=== PATIENT | female | born 1965 | race Caucasian/White ===

== ENCOUNTER 2023-06-26 14:54 | Outpatient (CLI) | payer OTHER, SELFPAY ==
--- NOTE | 2023-06-26 15:03 | USCV_ITS ---
Nenita Dennis Age: 58 Gender: F : 1965 Exam Date: 06/26/2023 15:39 Ordering Phys: Cathy Mijares MD Technologist: James Barragan [place] [facility] [place]: murmur BP: 138 / 70 HR: 75 Rhythm: Sinus Technical Quality: Adequate MEASUREMENTS (Male / Female) Normal Values 2D ECHO LVOT Diameter 2.0 cm LV Ejection Fraction MOD 2C 63.4 % LV Ejection Fraction 2C AL 65.7 % LA Diameter 3.9 cm LA Width 3.2 cm LA Height 4.2 cm RA Width 2.9 cm RA Height 4.7 cm Aorta at Sinotubular Diameter 2.9 cm IVC Diameter 1.5 cm M-MODE Aortic Annulus Diameter 2.7 cm LA Ao Ratio MM 1.4 MV E Point Septal Separation 0.4 cm DOPPLER AV Peak Velocity 155.0 cm/s LVOT Peak Velocity 94.7 cm/s AV Area Cont Eq vti 2.3 cm squared AV Area Cont Eq pk 2.0 cm squared MV Peak Velocity 102.0 cm/s MV Area PHT 3.0 cm squared Mitral E to A Ratio 0.8 MV E' Velocity 42.0 cm/s Mitral E to MV E' Ratio 12.8 Mitral E to LV E' Lateral Ratio 12.0 Mitral E to LV E' Septal Ratio 13.7 TR Peak Velocity 178.3 cm/s TR Peak Gradient 12.7 mmHg TR Mean Velocity 137.8 cm/s TR Mean Gradient 8.2 mmHg TR Velocity Time Integral 34.6 cm Right Atrial Pressure 3.0 mmHg Pulmonary Artery Systolic Pressu 15.7 mmHg PV Peak Velocity 101.0 cm/s RV Acceleration Time 0.1 s RV Ejection Time 0.3 s RV AcT/ET 0.5 FINDINGS Left Ventricle Normal left ventricular size, systolic function and wall thickness, with no regional wall motion abnormalities. Normal left ventricular wall thickness. Normal diastolic filling pattern. Right Ventricle The right ventricle is normal in size and function. Right Atrium The right atrium is normal in size. Left Atrium The left atrium is normal in size. Mitral Valve Structurally normal mitral valve without significant stenosis or prolapse. There is no mitral regurgitation. Aortic Valve Structurally normal aortic valve without significant sclerosis or stenosis. There is no aortic regurgitation. Tricuspid Valve Structurally normal tricuspid valve without significant stenosis. There is trivial regurgitation. Pulmonary artery systolic pressure is normal. Pulmonic Valve Structurally normal pulmonic valve without significant stenosis. There is trivial pulmonic regurgitation. Pericardium Normal pericardium without effusion. Aorta Normal ascending aorta dimension. IVC The inferior vena cava appears normal. CONCLUSIONS Overall normal LV function with no significant valvular disease Hussain Roberts MD (Electronically Signed) Final Date: 27 June 2023 10:37 S
== END 2023-06-26 14:55 | disposition home or self-care (01) ==
LOC: RAD 14:58
PROVIDERS: Visit Provider Nurse Practitioner Family
DX: R01.1 Cardiac murmur, unspecified (principal)
CPT/HCPCS: 93306

== ENCOUNTER → 2024-08-26 08:40 | Outpatient (BNVA) | payer OTHER, SELFPAY | PROVIDERS: PCP Nurse Practitioner Family; Visit Provider Physician Assistant | DX: M79.641 Pain in right hand (principal); M79.642 Pain in left hand; M65.4 Radial styloid tenosynovitis [de Quervain]; R03.0 Elevated blood-pressure reading, without diagnosis of hypertension; M18.0 Bilateral primary osteoarthritis of first carpometacarpal joints | CPT/HCPCS: 73130 ==

== ENCOUNTER → 2025-04-04 08:01 | Outpatient (BNVA) | payer OTHER, SELFPAY | PROVIDERS: PCP Nurse Practitioner Family; Visit Provider Physician Assistant | DX: M18.0 Bilateral primary osteoarthritis of first carpometacarpal joints (principal); M65.4 Radial styloid tenosynovitis [de Quervain]; G56.02 Carpal tunnel syndrome, left upper limb | CPT/HCPCS: 73130 ==

== ENCOUNTER 2025-05-19 09:12 | Day surgery (SDC) | payer OTHER, SELFPAY ==
[2025-05-19] VITALS (9 sets, daily range): BP systolic 91–184; BP diastolic 62–101; PULSE 64–78; RESP 12–18; TEMP 36.2–36.4; O2SAT 93–100; BMI 34.3
--- NOTE | 2025-05-19 10:05 | W.PM.OPSFHP ---
Same Day Surgery H&P Indication for Procedure/HPI DATE OF PROCEDURE: May 19, 2025 CHIEF COMPLAINT/INDICATIONFOR SURGICAL PROCEDURE: Right wrist de Quervain's disease, left carpal tunnel syndrome PREOP DIAGNOSIS: Right wrist de Quervain's disease, left carpal tunnel syndrome PLANNED PROCEDURE: Operation Date: 05/19/25 11:10 Proposed Procedures p LEFT Carpal Tunnel Release(Left) - Silvestre Heard, DO s RIGHT Wrist De Quervain's Release(Right) - Silvestre Zhou, DO Medications/Allergies* Home Medications ?Medication ?Instructions ?Recorded ?Confirmed ?Type atorvastatin 10 mg tablet 10 mg PO DAILY 08/26/24 05/19/25 History blood-glucose sensor (Dexcom G6 #1 ea 08/26/24 05/19/25 History Sensor device) blood-glucose transmitter (Dexcom #1 ea 08/26/24 05/19/25 History G6 Transmitter device) ergocalciferol (vitamin D2) 1,250 1,250 mcg PO DAILY 08/26/24 05/19/25 History mcg (50,000 unit) capsule gabapentin 300 mg capsule 300 mg PO DAILY 08/26/24 05/19/25 History lisinopril 20 mg tablet 20 mg PO DAILY 08/26/24 05/19/25 History metformin 500 mg tablet,extended 500 mg PO DAILY 08/26/24 05/19/25 History release 24 hr semaglutide 1 mg/dose (4 mg/3 mL) 1 mg SUBCUT DIRECTED 08/26/24 05/19/25 History subcutaneous pen injector (Ozempic) venlafaxine 37.5 mg 37.5 mg PO DAILY 08/26/24 05/19/25 History capsule,extended release 24 hr Allergies/Adverse Reactions Allergy/AdvReac Type Severity Reaction Status Date / Time Penicillins Allergy Unknown Unknown Verified 05/18/25 08:47 Pertinent History/Comorbid Conditions* Family History (Updated 08/26/24 @ 08:54 by Gladis Stewart MA) Diabetes Mother Family/Other Uncle on mother's side Social History Smoking and tobacco/nicotine status: never used tobacco/nicotine Pertinent Exam Findings alert, oriented x 3, operative site marked and procedure specific exam findings Orthopedic examination today demonstrates patient has positive Tinel's over the left carpal tunnel with thenar eminence pain. Patient does have some subtle appreciable thenar atrophy appreciated on the left hand. On the right hand patient has a positive Tinel's and Torrey's over the first dorsal compartment as well as tenderness palpation over the first dorsal compartment consistent with right wrist de Quervain's disease Please refer to detailed orthopedic examination on 04/04/2025 listed below: Right Hand exam-Negative Tinel's and Negative Phalen's test. Negative CMC grind test. Tenderness over CMC joint area. Tenderness at base of thumb and wrist. positive Torrey's test. No Thenar atrophy and no thenar muscle weakness. Full range of motion in fingers and wrist and fingers are warm and well-perfused with normal cap refill under 2 seconds. Radial pulse 2+. Left Hand exam-positive Tinel's and positive Phalen's test. No thenar atrophy and no thenar muscle weakness. Full range of motion in fingers and wrist and fingers are warm and well-perfused with normal cap refill under 2 seconds. Radial pulse 2+, no intrinsic muscle weakness noted. Elbow exam-negative Tinel's test Recommendations Risks and benefits of procedure reviewed and Patient/family agree to proceed Surgery/Procedure today Other Plans: Plan to proceed to the OR today for left carpal tunnel release and right wrist de Quervain's release. At this point in time patient is having significant pain over her right wrist radial styloid first dorsal compartment findings are consistent with a right wrist de Quervain's disease she is only had temporary relief with injection and this at this point I am ready proceed with surgical invention she also has significant numbness and tingling as well as pain on her left thumb more over the thenar eminence. She does have some subtle appreciable atrophy on examination as well. At this point in time she states she feels like she has some of the pain over her first dorsal compartment as well and was wondering about having a de Quervain's done on the left side unfortunately I discussed this with her that this was not initially authorized with her surgery due to her last office visit and now this pain has has worsened since that time I offered her the option of just doing the right side today and then reevaluating in clinic for the left side but at this point in time she would like to have the left carpal tunnel release addressed as well as the right wrist de Quervain's release. She does understand and on my description on her examination she does have some pain over the thenar eminence and numbness and tingling that could possibly be related to the carpal tunnel which at this point in time we talked about this in detail and through shared decision making she would like to see how her hand responds to the left carpal tunnel release first and in the follow-up we will address her de Quervain's potentially on the left side if this ends up being more the cause it issue of her pain but she does still have the issues with numbness which she would like to have addressed. At this point in time we are both in agreements and understand the planned procedure for today which she is in agreements and wants to proceed with which is the left carpal tunnel release of the right wrist de Quervain's release she understands the ins outs procedure the risk benefits complication alternatives surgical nonsurgical treatment options. Understanding risk of surgery she elects proceed with surgical invention. All questions answered at this time. Coding Level of Care Code Acute Code for Apolonia Milton
[2025-05-19] MEDS: acetaminophen 1,000 MG/100 ML PIGGYBACK 400 MG IV (10:24)
[2025-05-19] MEDS: lidocaine-epi 1% 20 mL INJ INJECTION (12:34)
[2025-05-19] MEDS: ROPivacaine 0.5% SDV 30 mL 150 MG INJECTION (12:34)
--- NOTE | 2025-05-19 13:03 | SUR.PHASEI ---
12:51 RECEIVED PT FROM OR STAFF. AIRWAY PATENT WITH GOOD VENTILATION. NSR ON MONITOR. ALERT TO VOICE. WARM BLANKETS APPLIED. ROM AND SENSATION TO BILATERAL FINGERS.
--- NOTE | 2025-05-19 13:06 | P.BOP_ITS ---
Date of Procedure: 05/19/2025 Surgeon: Silvestre Epperson DO Detective And Intelligence Analyst(s): None Procedure(s) performed: Left carpal tunnel release Right wrist de Quervain's release Findings of the procedure(s): Underwent procedure as planned without issues or complications taken recovery in stable condition Estimated blood loss: 3 mL Specimen(s) removed: None Post-operative diagnosis: Left carpal tunnel syndrome, right wrist de Quervain's disease
--- NOTE | 2025-05-19 13:08 | P.OP_ITS ---
Operative Report Date of procedure: May 19, 2025 Surgeon: Silvestre Epperson DO Procedure: Preop Diagnosis: Left Carpal Tunnel Syndrome Right wrist de Quervain's Post-op diagnosis: Same Procedure done: 1. Left carpal tunnel release 2. Right wrist de Quervain's release Surgeon: Silvestre Epperson DO Anesthesia: MAC (Local) Estimated blood loss: [3 mL] Tourniquet time 5 minutes?left 7 minutes?right IV fluids: 500 mL Complications: None Findings: See operative report narrative Condition: stable Disposition: same day Brief History: Patient is a pleasant [59]year-old female with left carpal tunnel syndrome and right wrist de Quervain's disease. Patient has been worked up in the outpatient setting findings and physical examination consistent with this. We detailed out patient's risk benefits complication alternatives with surgical and nonsurgical treatment options. Through shared decision making, patient agrees to proceed with surgical intervention of the left carpal tunnel release and right wrist de Quervain's release. Patient understands and agrees with current plan. All questions answered. Patient elects to proceed with surgical intervention, consent reviewed and signed with patient in the preoperative holding area. Procedure: Patient seen and evaluated in the preoperative holding area. Consent was reviewed and signed with patient. Correct extremity was marked. Patient was seen evaluated by the anesthesia department once cleared for surgery was brought back to the operative suite. Patient was kept on [facility] in supine position all bony prominences were well-padded patient properly secured to the bed. Left and right upper extremity was then placed onto an armboard. A nonsterile tourniquet was applied to the left and right upper arm. Patient underwent anesthesia per the anesthesia department. Patient's left and right upper extremity was then prepped and draped in standard orthopedic fashion. Final timeout performed. Patient received appropriate preoperative antibiotics. Under sterile aseptic technique patient received local anesthesia over the preplanned carpal tunnel incision site. Esmarch was used to exsanguinate the left upper extremity and tourniquet was insufflated to 250 mmHg. A standard mini open left carpal tunnel incision was made. Starting distally at Jasso's cardinal line in line with the fourth ray extending proximally distal to the wrist crease centered over the carpal tunnel. Sharp scalpel incision was made through skin and subcutaneous tissue. Self-retaining retractor was placed and the palmar fascia was identified. This was then split longitudinally and direct visualization of the transverse carpal ligament was then made. I then utilizing scalpel feathered through the transverse carpal ligament until I entered the floor of the transverse carpal tunnel ligament into the carpal tunnel. Next I switched to dissection scissors and completed my release of the transverse carpal ligament distally with care to protect the recurrent motor br anch. I completely released into the palmar fat and until no entrapment was noted distally. Care was made to protect the superficial palmar arch during my distal dissection. Next, nasal speculum placed proximally for retraction of soft tissue on top of the Transverse carpal ligament. Next the contents of the carpal tunnel where protected and and subsequently utilizing dissection scissors under loupe magnification completely released the transverse carpal ligament proximally into the antebrachial fascia. Care was made to protect the palmar cutaneous branch by keeping my scissors curved ulnarly. Once completely released, I then placed my [place] and had appropriate decompression of the carpal tunnel proximally as well as distally. I then inspected the contents of the carpal tunnel which showed an hourglass shape of the median nerve showing its compression. No masses were noted. Tendons appeared healthy. Wound was then thoroughly irrigated. Tourniquet deflated. Hemostasis satisfactory with bipolar electrocautery. I then closed the incision with interrupted nylon stitches. Xeroform 4 x 4's and a bulky soft dressing was applied to the left upper extremity. Next I then subsequently transitioned to the right side of the patient performed right wrist de Quervain's release. Local injection for anesthetic over the preplanned incision site was performed I then utilized Esmarch tourniquet to exsanguinate the right upper extremity tourniquet insufflated to 250 mmHg. Next I then proceeded with the right wrist de Quervain's release.? I marked out the first dorsal compartment a small longitudinal incision was made directly over this.? Sharp scalpel incision was made through skin only switch to Cloverr dissection scissors and protected the superficial branch of the radial nerve as well as neurovascular structures.? I then had direct visualization of the first dorsal compartment sharp scalpel incision I used to then simply incise the first dorsal compartment I switched dissection scissors to release this both proximally and distally to its entirety. Patient was noted to have a severely thickened first dorsal compartment ligament with significant hourglassing of the tendon consistent with de Quervain's disease of the EPB and APL tendons. I then subsequently used a rag nail and mobilized each tendon that verify no areas of entrapment and this completed the right wrist de Quervain's release. This point in time thorough irrigation performed tourniquet deflated hemostasis was satisfactory I then subsequently closed this in standard fashion with int errupted nylon suture for the skin Xeroform 4 x 4's fluffs kerlix and Todd wrap. Patient awakened anesthesia taken recovery in stable condition. Disposition: Patient taken to PACU in stable condition recovering well. Dressing clean dry and intact. Patient will receive appropriate discharge instructions as well as pain medication postoperatively. Patient to follow-up with Ortho in the office in 2 weeks. They understand they may be weightbearing as tolerated to the left and right hand, recommend limit heavy lifting. Patient should keep incision clean dry and intact. Patient understands if any questions or concerns may contact the office.
--- NOTE | 2025-05-19 13:26 | ANE.PACU2 ---
Inpatient post-anesthesia follow up: Airway intact: Yes Vital signs: Temperature 97.5 F Pulse Rate 64 Respiratory Rate 16 Blood Pressure 184/94 Pulse Oximetry 100 Oxygen Delivery Me thod Room Air Oxygen Flow Rate Fraction of Inspir ed Oxygen Hydration adequate: Yes Nausea and vomiting: No Pain level: 1 Mental status: Baseline
== END 2025-05-19 14:10 | disposition home or self-care (01) ==
PROVIDERS: PCP Nurse Practitioner Family; Visit Provider Student in an Organized Health Care Education/Training Program
PROC: (CPT 64721; principal; 2025-05-19 11:00)
PROC: (CPT 64721; 2025-05-19 11:00)
DX: G56.02 Carpal tunnel syndrome, left upper limb (principal); M65.4 Radial styloid tenosynovitis [de Quervain]; Z79.84 Long term (current) use of oral hypoglycemic drugs
CPT/HCPCS: 64721; 25000; 36416; 82962; J0131; J1100; J1885; J2405; J2704; J2795; J3010; J3490; J7030; J9999